=== PATIENT | male | born 1965 | race Caucasian/White ===

== ENCOUNTER 2016-07-11 09:28 | Day surgery (SDC) | payer BC ==
--- NOTE | ~2016-07-11 | EGD ---
EGD REPORT [facility] [address] [place]. [address] NAME: REJI DAUGHERTY : 63 STATUS : REG [facility]#: [id number] AGE: 51 ADM/REG DATE : 07/11/16 MR#: [id number] REPORT SERV DATE: 07/11/16 DICTATED BY: JOAO CHEN DATE: 07/11/16 REPORT STATUS : Draft TRANSCRIBED BY: [employer] DATE: 07/11/16 [facility] Patient Name: Reji Daugherty Date of : 1965 Attending MD: JOAO CHEN MD Procedure Date No Time: 07/11/2016 Procedure: Colonoscopy Indications: Screening for colorectal malignant neoplasm Referring MD: LUIS ENRIQUE LOPEZ III Medicines: as per anesthesia Complications: No immediate complications. Procedure: Pre-Anesthesia Assessment: - ASA Grade Assessment: III - A patient with severe systemic disease. After I obtained informed consent, the scope was passed under direct vision. Throughout the procedure, the patient's blood pressure, pulse, and oxygen saturations were monitored continuously. The PCF [id number] was introduced through the anus and advanced to the cecum, identified by appendiceal orifice and ileocecal valve. The colonoscopy was performed without difficulty. The patient tolerated the procedure. The quality of the bowel preparation was adequate to identify polyps. Findings: The perianal and digital rectal examinations were normal. Internal hemorrhoids were found during endoscopy and were mild. Impression: - Internal hemorrhoids. Recommendation: - Repeat colonoscopy in 10 years for surveillance. Procedure Code(s): --- Professional --- 01561, Colonoscopy, flexible, proximal to splenic flexure; diagnostic, with or without collection of specimen(s) by brushing or washing, with or without colon decompression (separate procedure) Diagnosis Code(s): --- Professional --- K64.8, Other hemorrhoids Z12.11, Encounter for screening for malignant neoplasm of colon CPT copyright 2013 [employer]. All rights reserved. EGD REPORT [facility] [address] [place], [place] [address] [place]. [address] NAME: REJI DAUGHERTY : 63 STATUS : [place] [facility] [place]#: [id number] AGE: 51 ADM/REG DATE : 07/11/16 MR#: [id number] REPORT SERV DATE: 07/11/16 DICTATED BY: JOAO CHEN. DATE: 07/11/16 REPORT STATUS : Draft TRANSCRIBED BY: [employer] DATE: 07/11/16 The codes documented in this report are preliminary and upon hosiery operator review may be revised to meet current compliance requirements. JOAO CHEN MD 07/11/2016 12:47 PM This report has been signed electronically. Number of Addenda: 0 Note Initiated On: 07/11/2016 12:16 PM Scope Withdrawal Time 0 hours 11 minutes 33 seconds [address] [facility] [place] [address]
[~2016-07-11 09:28] MED LIST: CINNAMONPO PO; FISH OIL300 MG PO; GARLIC PO; GLUCCHONDR PO; LIPITOR10 PO; MULTIPLE VIT PO
== END 2016-07-11 23:59 | disposition home health service (06) ==
LOC: DMU 09:28
PROVIDERS: Internal Medicine Gastroenterology
PROC: 0DJD8ZZ Inspection of Lower Intestinal Tract, Via Natural or Artificial Opening Endoscopic (ICD-10-PCS; principal; 2016-07-11 10:30)
DX: Z12.11 Encounter for screening for malignant neoplasm of colon (principal); K64.8 Other hemorrhoids; I10 Essential (primary) hypertension; Z98.890 Other specified postprocedural states